=== PATIENT | male | born 1975 | race Caucasian/White ===

== ENCOUNTER → 2020-03-11 15:14 | Outpatient (CLI) | payer OTHER, SELFPAY ==
[2020-03-12 10:15] LABS: COVID19 Sendout Not Detected (Not Detect)
== END ==
PROVIDERS: PCP Nurse Practitioner Family; Visit Provider Physician Assistant
DX: Z11.59 Encounter for screening for other viral diseases (principal)
CPT/HCPCS: 87635

== ENCOUNTER 2020-03-14 14:52 | Outpatient (CLI) | payer OTHER, SELFPAY ==
[2020-03-14] VITALS (8 sets, daily range): BP systolic 100–116; BP diastolic 55–67; PULSE 47–75; RESP 15–22; TEMP 36.2; O2SAT 96–98
--- NOTE | 2020-03-14 14:54 | DI.RAD.S_ITS ---
PROCEDURE: PAIN L/S TRANSFORAMINAL INJECT INDICATIONS: SPONDYLOSIS COMPARISON: None. FINDINGS: Fluoroscopic spot filming was performed to verify placement of spinal needles at the L5-S1 level(s), as labeled on the films. Appropriate location(s) of the needle tip(s) was confirmed by injection of iodinated contrast. IMPRESSION: Successful needle tip localization to the external os of the right L5-S1 neural foramen for transforaminal numbed epidural steroid injection. Dictated by: Rodrigo Hurtado M.D. on 03/14/2020 at 16:37 Approved by: Rodrigo Hurtado M.D. on 03/14/2020 at 16:37
--- NOTE | 2020-03-14 15:12 | PM.PROC.IR.1 ---
Date/Time/Diagnoses Date of procedure: 03/14/20 Time of procedure: 15:12 Pre-procedure diagnosis: 1. FORAMINAL STENOSIS WITH LE SYMPTOMS Post-procedure diagnosis: same Procedure Notes Procedure: 1. FLUOROSCOPICALLY GUIDED CONTRAST CONTROLLED TRANSFORAMINAL EPIDURAL STEROID INJECTION - RIGHT L5/S1 TFESI Indications: Joseph is referred by VOLODYMYR Parks for treatment of Foraminal Stenosis with right LE Symptoms Physician: Norbert Melendez Total Fluoroscopy time (seconds): 7 Total sedation minutes: 11 Complications: none Procedure in detail & Post-procedure care: FINDINGS Foraminal Nerve Root Compression secondary to disc disease and facet hypertrophy DESCRIPTION OF PROCEDURE Following review of allergy and review of potential side effects and complications, including, but not necessarily limited to, infection, allergic reaction, local tissue breakdown, stroke, temporary or permanent nerve injury, paralysis, and possible , the patient indicated that the patient understood and agreed to proceed. An informed consent document was signed by the patient, witnessed by a nurse, and placed in the patient's chart. Additionally, other treatment options including medications, modalities, and physical therapy were reviewed with the patient. After review of previous anaesthesic history and IV conscious sedation the patient was deemed safe to proceed with today?s procedure with IV conscious sedation as ASA class II designation. Safety time-out was performed to confirm patient ID, procedure to be performed and site of procedure. IV sedation was accomplished with a combination of 2mg of Versed was administered by the RN after DO order, titrated to patient comfort during the course of the procedure while the patient remained responsive to all verbal commands In the prone position following sterile prep and drape of the lumbar region, the right L5/S1 posterior neuroforamen was identified fluoroscopically. The skin was anesthetized via a 25-gauge 1.5-inch needle with 1% lidocaine solution. At this point, a 25-gauge 3.5-inch spinal needle was atraumatically introduced and advanced under fluoroscopic guidance through the posterior right L5/S1 neuroforamen to approximately the anterior aspect of the canal. Depth was confirmed on lateral view. Following negative aspiration, injection of approximately 1.5cc of Isovue 200 under live fluoroscopy in the AP view confirmed excellent flow along the nerve root, into the epidural space without vascular or intrathecal uptake observed Radiological data, including multiple fluoroscopic views of the lumbosacral spine, reveal a spinal needle at the right L5/S1 posterior neuroforamen. Subsequent views show flow of contrast material flowing superiorly and inferiorly along the nerve root confirming epidural flow. Subsequently, a test dose of 1.5cc of 1% lidocaine solution was administered and patient was observed for two minutes for signs or symptoms of complications, including abdominal pain, shortness of breath, bilateral upper or lower extremity weakness, nausea and vomiting, prior to steroid injection. At this point, a total of 3cc or 20mg of dexamethasone and 6mg betamethasone was injected without incident. The procedure tolerated the procedure well without signs or symptoms of complications prior to transfer to the recovery area continued monitoring without incident. The patient was then transferred to the recovery area where they were observed for an appropriate time after the injection. The patient reported a VAS score of 7 prior to the procedure and a post-procedure VAS of 0. POST OP INSTRUCTIONS The patient was provided a Pain Log to continue to record their response to the target-specific procedure prior to follow-up visit with their referring physician. Additionally, specific post-injection care instructions and a contact number to our office were provided if concerns arise regarding possible complications associated with the procedure are suspected.
[2020-03-14] MEDS: MIDAZOLAM 5 MG/5 ML VIAL IV (15:32)
[2020-03-14] MEDS: IOPAMIDOL 15 ML VIAL 3 ML INJ (15:38)
[2020-03-14] MEDS: BUPIVACAINE 0.25% (PF) VIAL 2 ML INJ (15:38)
[2020-03-14] MEDS: DEXAMETHASONE 10 MG/ML VIAL 20 MG INJ (15:38)
[2020-03-14] MEDS: BETAMETHASONE 30 MG/5 ML MDV 6 MG INJ (15:38)
--- NOTE | 2020-03-14 16:36 | PC.NURSE ---
Patient was steady on his feet. Denied any dizziness or lightheaded. This RN took patient out via w/c to care. Has no questions or concerns at this time. Green pain log reviewed with posit injections instructions.
== END 2020-03-14 16:15 | disposition home or self-care (01) ==
LOC: RAD 14:54
PROVIDERS: PCP Nurse Practitioner Family; Referring Provider Physical Medicine & Rehabilitation; Visit Provider Physical Medicine & Rehabilitation
DX: M48.07 Spinal stenosis, lumbosacral region (principal); M51.17 Intervertebral disc disorders with radiculopathy, lumbosacral region
CPT/HCPCS: 64483; 99152; J0702; J1100; J2250; J3010